=== PATIENT | male | born 1980 | race African-American/Black ===

== ENCOUNTER 2016-07-14 12:59 | Emergency (ER) | payer BC ==
[2016-07-14] MEDS ORDERED: VITAMIN E100 UNI3 PO (13:47)
[2016-07-14] MEDS ORDERED: CENTRUM MEN'S1 EACH PO (13:47)
[2016-07-14 14:10] LABS: BASO % 0.1 % (0-2); EOS % 0.4 % (0-7); HCT-HEMATOCRIT 51.3 % (36.0-53.5); HGB-HEMOGLOBIN 17.8 gm/dl (13.5-17.0); IMMATURE GRANULOCYTES ABSOLUTE 0.01 tho/cmm (0-0.03); IMMATURE GRANULOCYTES PERCENT 0.1 % (0-0.3); LYMPH % 8.7 % (20-45); LYMPH ABSOLUTE COUNT 0.7 tho/cmm (0.8-4.5); MCH (MEAN CORPUSCULAR HGB) 30.2 pg (28.0-32.0); MCHC MEAN CORPUSCULAR HGB CONC 34.7 % (32.0-36.0); MCV (MEAN CELL VOLUME) 86.9 fl (82.0-96.0); MONO % 7.4 % (0-12); MONOCYTE ABSOLUTE COUNT 0.6 tho/cmm (0.0-1.2); NEUTROPHILS % 83.3 % (40-80); PLATELET COUNT 165 tho/cmm (150-450); RED CELL DISTRIBUTION WIDTH 13.5 % (12.4-16.4); WHITE BLOOD COUNT 8.5 tho/cmm (4.0-10.0)
[2016-07-14 14:29] LABS: ALB/GLOB RATIO 0.9 (0.8-2.0); ALBUMIN 3.6 g/dl (3.5-5.0); ALKALINE PHOSPHATASE 76 U/L (33-138); ALT/SGPT 63 U/L (12-78); ANION GAP 9 mmol/L (0-20); AST/SGOT 64 U/L (10-40); BILIRUBIN,TOTAL 0.8 mg/dl (0.0-1.5); BLOOD UREA NITROGEN 16 mg/dl (6-24); CALCIUM 8.6 mg/dl (8.5-10.5); CARBON DIOXIDE-VENOUS 27 mmol/L (22-32); CHLORIDE 106 mmol/l (96-110); CREATININE 1.74 mg/dl (0.60-1.30); GLUCOSE 95 mg/dL (70-110); POTASSIUM 3.9 mmol/L (3.7-5.1); SODIUM 138 mmol/L (135-145); eGFR VALUE FOR BLACK 58 mL/Min
[2016-07-14] MEDS ORDERED: BENTYL10 M1 PO (14:53)
[2016-07-14] MEDS ORDERED: LOMOTIL 2.5-0.1 EACH PO (14:53)
== END 2016-07-14 15:08 ==
LOC: EDMED 12:59
PROVIDERS: Emergency Medicine
DX: E86.0 Dehydration (principal); R10.13 Epigastric pain; R19.7 Diarrhea, unspecified
CPT/HCPCS: J7030